=== PATIENT | female | born 1955 | race Caucasian/White ===

== ENCOUNTER 2016-09-08 22:51 | Emergency (ER) | payer BC ==
[~2016-09-08] VITALS: Ht 162.6 cm; Wt 56.7 kg
[2016-09-08 23:00] VITALS: BP 125/68
[2016-09-08 23:47] LABS: POTASSIUM ISTAT 4.2 mmol/L (3.5-5.0)
--- NOTE | 2016-09-09 01:56 | ED.ADGEN ---
Past Medical History Past Medical History: No Pertinent History Past Surgical History: Hip Replacement, Tonsillectomy Additional Past Surgical Histo: Breast Augmentation, Vein Striping, Left ankle Alcohol Use: None Drug Use: None Adult General Chief Complaint Chief Complaint: POST-OP PROBLEM HPI HPI Patient is a 61 year old woman, history of hip replacement, status post removal of bilateral breast implants 4 days ago, who presents to the emergency department with complaint of increased bleeding from her left breast drained. Patient with bilateral drains in place, presents with her , states that she has been having a massage the breast as directed for drainage, and about an hour prior to arrival, they noted a larger than normal amount of dark red blood from the left breast drained. No bright red blood noted, it was not continuous, they state that it was about a tablespoon size amount. Previously they been having much smaller amounts of drainage, this occurred once and has not occurred since that time. They state they attempted to contact the patient's surgeon but has not been able to reach her at this point to the came to the ED for evaluation. Patient states that she has mild nausea, has been taking antibiotics as directed, denies any weakness in this or tingling, any new pain, any fevers, any injuries. Patient states that she has had redness in the breast area, which was evaluated by her surgeon, but there is no change in the appearance of her breasts otherwise, no change in the pain, no drainage of purulent material or other changes or findings. She's not experiencing any bleeding at this time. Patient states she does have a history of anemia. No lightheadedness or dizziness, no palpitations or other complaints. Review of Systems Review of Systems Constitutional: Denies fever or chills. [] Eyes: Denies change in visual acuity. [] HENT: Denies nasal congestion or sore throat. [] Respiratory: Denies cough or shortness of breath. [] Cardiovascular: Denies chest pain or edema. [] GI: Denies abdominal pain, nausea, vomiting, bloody stools or diarrhea. [] : Denies dysuria. [] Musculoskeletal: Denies back pain or joint pain. Bleeding from left drain. Integument: Denies rash. [] Neurologic: Denies headache, focal weakness or sensory changes. [] Endocrine: Denies polyuria or polydipsia. [] Lymphatic: Denies swollen glands. [] Psychiatric: Denies depression or anxiety. [] Allergies Allergies Allergies Coded Allergies Type Severity Reaction Last Updated Verified Penicillins Allergy Intermediate 09/08/16 Yes Physical Exam Physical Exam Constitutional: Well developed, well nourished, no acute distress, non-toxic appearance. [] HENT: Normocephalic, atraumatic, bilateral external ears normal, oropharynx moist, no oral exudates, nose normal. [] Eyes: PERRLA, EOMI, conjunctiva normal, no discharge. [] Neck: Normal range of motion, no tenderness, supple, no stridor. [] Cardiovascular:Heart rate regular rhythm, no murmur , S1, S2, rubs or gallops. [ ] Lungs & Thorax: Bilateral breath sounds clear to auscultation, no wheezing, rhonchi, rales. No chest wall crepitus, patient with bilateral drains in place and surgical incision underneath the breasts, the breast tissue is noted to be mildly reddened, but no evidence of induration or abscess formation, patient states that the redness is unchanged from the time of her surgery and last evaluation by her surgeon which was today, there are no streaking or signs of spreading erythema or infection. Unable to reproduce bleeding at this time, very small amount of sanguinous drainage from the left drain. Abdomen: Bowel sounds normal, soft, no rebound, rigidity, no guarding, patient with healing subcutaneous harvest site on her left lower quadrant, no evidence of induration abscess formation or other concerning findings, no tenderness, no masses, no pulsatile masses. [] Skin: Warm, dry, no erythema, no rash. [] Back: No tenderness, no CVA tenderness. [] Extremities: No tenderness, no cyanosis, no clubbing, ROM intact, no edema. [] Neurologic: Alert and oriented X 3, normal motor function, normal sensory function, no focal deficits noted. [] Psychologic: Affect normal, judgement normal, mood normal. [] Current Patient Data Vital Signs Vital Signs Date Time Temp Pulse Resp B/P Pulse Ox O2 Delivery O2 Flow Rate FiO2 09/08/16 23:00 99.1 93 16 125/68 98 Room Air 99.1 Lab Values Laboratory Tests Test 09/08/16 23:44 POC Hemoglobin 12.6g/dL (12-15) POC Hematocrit 37% (36-40) POC Sodium 136mmol/L (135-145) POC Potassium 4.2mmol/L (3.5-5.0) POC Chloride 94mmol/L (98-110) L POC Total CO2 33mmol/L (23-32) H Anion Gap 14mmol/L (6-14) POC Blood Urea Nitrogen 13mg/dL (8-26) POC Creatinine 0.8mg/dL (0.5-1.4) Glucose Level 121mg/dL (70-99) H POC Ionized Calcium ([place]) 1.09mmol/L (1.13-1.32) L Laboratory Tests 09/08/16 23:44 EKG EKG Not indicated. [] Radiology/Procedures Radiology/Procedures Not indicated. [] Course & Med Decision Making Course & Med Decision Making Pertinent Labs and Imaging studies reviewed. (See chart for details) I-STAT obtained in the emergency department due to patient's history of anemia, and complaining of bleeding, although it appears to be a relatively small amount. Hemoglobin was 12.6, no other concerning findings identified. I spoke with Dr. Marie, the patient's surgeon, at [phone], and relayed the history and examination as stated. She states that the patient's breast tissue indeed was slightly erythematous previously, but as the patient reports no change at this time, she will stick with the plan to have the patient's and her pictures on Sunday, she last examined the patient 12 hours ago. As the patient is having no significant bleeding, I will discharge the patient home, to continue her current pain medication and antibiotic treatment, patient is agreeable with this plan, we did discuss concerning symptoms that prompt return , patient voiced understanding and agreement with plan as stated, has all medications at home, was discharged home with her in stable condition with plan as above. Dragon Disclaimer Dragon Disclaimer This electronic medical record was generated, in whole or in part, using a voice recognition dictation system. Departure Impression: Primary Impression: Post-op bleeding Disposition: 01 HOME, SELF-CARE Condition: STABLE Problem Qualifiers Primary Impression: Post-op bleeding Surgical complication system/body Area: musculoskeletal system Procedure type : musculoskeletal Qualified Code: M96.830 - Postprocedural hemorrhage of a musculoskeletal structure following a musculoskeletal system procedure JOHN REYES DO Sep 09, 2016 01:56
== END 2016-09-09 00:31 | disposition home or self-care (01) ==
LOC: ER 22:51
DX: M96.831 Postprocedural hemorrhage of a musculoskeletal structure following other procedure (principal); Z96.649 Presence of unspecified artificial hip joint; Z98.86 Personal history of breast implant removal; Z88.0 Allergy status to penicillin
CPT/HCPCS: 80047; 99282

== ENCOUNTER 2017-02-16 14:54 | Emergency (ER) | payer BC ==
[~2017-02-16] VITALS: Ht 162.6 cm; Wt 57.2 kg
[2017-02-16 15:15] VITALS: BP 148/74
[2017-02-16] MEDS ORDERED: HYDROcodone/APAP 5/325MG 1 TAB TABLET PO ONE (15:45)
[2017-02-16] MEDS ORDERED: HYDR-971 PO (16:10)
--- NOTE | 2017-02-16 16:10 | PHYS DOC ---
Past Medical History Past Medical History: No Pertinent History Past Surgical History: Hip Replacement, Tonsillectomy Additional Past Surgical Histo: Breast Augmentation, Vein Striping, Left ankle , breast implants removed Alcohol Use: None Drug Use: None Adult General Chief Complaint Chief Complaint: FACE PROBLEM HPI HPI Patient is a 61 year old female presents with complaints of tooth infection and swelling of the face. Patient says she had a small abscess next to Tooth 16 and popped it, afterwards she started experiencing some swelling of the face. Patient denies any difficulty swallowing or throat pain, no respiratory no respiratory problems. No headache, fevers, chills, vomiting, neck pain or headache Review of Systems Review of Systems Constitutional: Denies fever or chills [] Eyes: Denies change in visual acuity, redness, or eye pain [] HENT: Denies nasal congestion or sore throat [] Respiratory: Denies cough or shortness of breath [] Cardiovascular: No chest pain GI: Denies abdominal pain, nausea, vomiting, bloody stools or diarrhea [] Musculoskeletal: Denies back pain or joint pain [] Integument: Denies rash or skin lesions [] Neurologic: Denies headache, focal weakness or sensory changes [] Psych: Normal mood Current Medications Current Medications Current Medications Medications (Trade) Dose Ordered Sig/Karlos Start Time Stop Time Status Last Admin Dose Admin Acetaminophen/ Hydrocodone Bitart (Lortab 5/325) 1 tab 1X ONCE 02/16/17 15:45 02/16/17 15:46 DC Allergies Allergies Allergies Coded Allergies Type Severity Reaction Last Updated Verified Penicillins Allergy Intermediate 02/16/17 Yes Physical Exam Physical Exam Constitutional: Well developed, well nourished, no acute distress, non-toxic appearance. [] HENT: Normocephalic, atraumatic, tympanic membranes normal, no signs of mastoiditis, oropharynx moist, no oral exudates, no signs of abscess, nose normal. Airway is patent Eyes: PERRLA, EOMI, conjunctiva normal, no discharge. No evidence of orbital or periorbital cellulitis Neck: Normal range of motion, no tenderness, supple, no stridor. No JVD no meningeal signs, Cardiovascular:Heart rate regular rhythm, no murmur, normal perfusion Lungs & Thorax: Bilateral breath sounds clear to auscultation, no tachypnea Abdomen: Nondistended Skin: Warm, dry, no erythema, no rash. No signs of abscess or induration seen in the face. Back: Full range of motion Extremities: No tenderness, no cyanosis, no clubbing, ROM intact, no edema. [] Neurologic: Alert and oriented X 3, normal motor function, able to ambulate in the ED without difficulty, no focal deficits noted. [] Psychologic: Affect normal, judgement normal, mood normal. [] Current Patient Data Vital Signs Vital Signs Date Time Temp Pulse Resp B/P (MAP) Pulse Ox O2 Delivery O2 Flow Rate FiO2 02/16/17 15:45 18 02/16/17 15:15 97.6 88 148/74 (98) 97 Room Air 97.6 EKG EKG [] Radiology/Procedures Radiology/Procedures [] Course & Med Decision Making Course & Med Decision Making Pertinent Labs and Imaging studies reviewed. (See chart for details) [] Dragon Disclaimer Dragon Disclaimer This electronic medical record was generated, in whole or in part, using a voice recognition dictation system. Departure Departure Impression: Primary Impression: Tooth ache Additional Impression: Oral abscess Disposition: 01 HOME, SELF-CARE Condition: STABLE Referrals: ROMELIA ERICKSON MD (PCP) please recheck with your pcp in 2-3 days, if your symptoms worsen, difficulty swallowing or breathing or new concerns arise return to the ED immediately. Take antibiotics as directed Scripts Hydrocodone/Apap 5-325 (NORCO 5-325 TABLET) 1 Each Tablet 1 TAB PO PRN Q6HRS Y for PAIN, #10 TAB 0 Refills Prov: Alexandria HOYOS MD 02/16/17 Problem Qualifiers Alexandria HOYOS MD Feb 16, 2017 16:10
== END 2017-02-16 16:18 | disposition home or self-care (01) ==
LOC: ER 14:54
DX: K12.2 Cellulitis and abscess of mouth (principal); Z88.0 Allergy status to penicillin
CPT/HCPCS: 99283